=== PATIENT | male | born 1975 | race Caucasian/White ===

== ENCOUNTER 2019-08-06 | Day surgery (SDC) | payer OTHER ==
[~2019-08-06] MED LIST: AMITRIPTYLIN10 MG PO; BACLOFEN10 MG PO; DICLOFENAC SODI75 MG PO; FAMOTIDINE20 M1 PO; INVOKANA300 MG; LIPITOR20 M1 PO; LISINOPRIL10 MG PO; LYRICA50 MG PO; METFORMIN HYD1000 MG PO; METFORMIN850 MG PO; OZEMPIC2 MG/1.51; TRAZODONE100 MG PO
[2019-08-06] MEDS ORDERED: PERCOCET 5/325M1 TAB PO (12:23)
== END 2019-08-06 12:52 | disposition home or self-care (01) ==
DX: K40.90 Unilateral inguinal hernia, without obstruction or gangrene, not specified as recurrent (principal); N43.3 Hydrocele, unspecified; I10 Essential (primary) hypertension; E11.9 Type 2 diabetes mellitus without complications; F17.210 Nicotine dependence, cigarettes, uncomplicated; Z79.84 Long term (current) use of oral hypoglycemic drugs
CPT/HCPCS: C9290; J0131

== ENCOUNTER 2019-11-07 23:23 | Inpatient (IN) | payer OTHER ==
[~2019-11-07] VITALS: Ht 175.3 cm; Wt 95.9 kg
[~2019-11-07 23:23] MED LIST changes: +PERCOCET 5/325M1 TAB PO
--- NOTE | 2019-11-07 23:39 | NUR ---
PT. TO ROOM 9 WITH C/O FEELING SOB ON AND OFF FOR APPROX 2-3 WEEKS. BILATERAL LUNG LINDSEY ARE CDEMINISHED. O2 SAT ON RA 91% PT. STATES HE WAS JUST DIAGNOISED WITH COPD. BP 196/121, AT BEDSIDE.
[2019-11-08] VITALS (18 sets, daily range): BP systolic 130–182; BP diastolic 74–106
--- NOTE | 2019-11-08 00:07 | NUR ---
PO ASA, SL NITRO-GLYCERIN, AND IV LOPRESSOR GIVEN PER MD ORDER.
[2019-11-08 00:23] LABS: HEMATOCRIT 41.4 % (39.0-50.0); HEMOGLOBIN 13.6 g/dl (14.0-18.0); IMMATURE GRANULOCYTES 0.2 % (0.0-5.0); MEAN CELL VOLUME 96.1 fL CALC (80.0-100.0); MEAN CORPUSCULAR HGB 31.6 pG CALC (26.0-32.0); MEAN CORPUSCULAR HGB CONC 32.9 g/dL CAL (32.0-36.0); NEUT# 8.67 thou/uL (1.82-7.42); RED BLOOD COUNT 4.31 mill/uL (4.70-6.10); RED CELL DISTRI WIDTH 13.7 % (11.5-15.5)
[2019-11-08 00:31] LABS: URINE BILIRUBIN - DIPSTICK NEGATIVE (NEGATIVE); URINE BLOOD DIPSTICK MODERATE (NEGATIVE); URINE COLOR YELLOW; URINE GLUCOSE - DIPSTICK >=1000 mg/dL (NEGATIVE); URINE KETONE NEGATIVE (NEGATIVE); URINE LEUK ESTERASE NEGATIVE (NEGATIVE); URINE NITRITE - DIPSTICK NEGATIVE (Negative); URINE PROTEIN - DIPSTICK 30 mg/dL (NEG-TRACE)
[2019-11-08 00:34] LABS: ALBUMIN 4.2 g/dL (3.2-5.0); ALKALINE PHOSPHATASE 79 u/l (38-126); ANION GAP 16 (6-22 (CALC)); BILIRUBIN, TOTAL 0.7 mg/dL (0.0-1.4); BUN 12 mg/dL (9-20); BUN/CREATININE RATIO 15 (12-20 (CALC)); CARBON DIOXIDE 23 mmol/l (22-30); CHLORIDE 104 mmol/l (95-108); CREATININE 0.8 mg/dL (0.7-1.3); ETHYL ALCOHOL 0 mg/dl (0-30); GFR > 60 ML/MIN (>=60 (CALC)); GFR FOR AFR.AMER. > 60 ML/MIN (>=60 (CALC)); LIPASE 20 u/l (23-300); MAGNESIUM 1.4 mg/dL (1.6-2.3); POTASSIUM 4.2 mmol/l (3.5-5.1); SGOT/AST 24 u/l (17-59); SODIUM 139 mmol/l (137-146); TOTAL PROTEIN 7.3 g/dL (6.3-8.2)
[2019-11-08 00:35] LABS: URINE EPITHELIAL CELLS FEW EPI/hpf (0-FEW)
[2019-11-08 00:36] LABS: BARBITURATES NEGATIVE (NEGATIVE); COCAINE NEGATIVE (NEGATIVE); METHADONE NEGATIVE (NEGATIVE); TETRAHYDROCANNABIONOL NEGATIVE (NEGATIVE); TRICYLIC ANTIDEPRESSANTS POSITIVE (NEGATIVE); URINE BACTERIA RARE hpf
[2019-11-08 00:37] LABS: OXCYCODONE NEGATIVE (NEGATIVE)
--- NOTE | 2019-11-08 00:39 | NUR ---
PT. APPEARS LESS SOB AT THIS TIME. VOIDING QS DAVID URINE.
[2019-11-08 00:40] LABS: INTERNATIONAL NORMALIZED RATIO 1.1 RATIO (0.7-1.3)
[2019-11-08 00:45] LABS: MYOGLOBIN 20 ng/mL (0 - 121)
--- NOTE | 2019-11-08 01:39 | NUR ---
PT. GIVEN IV LASIX AND NITRO-OINT. PER MD ORDER.
[2019-11-08] MEDS ORDERED: GLIMEPIRIDE2 MG PO (01:51)
[2019-11-08] MEDS ORDERED: METHOCARBAMOL500 MG PO (01:51)
[2019-11-08] MEDS ORDERED: PROTONIX40 M2 PO (01:52)
[2019-11-08] MEDS ORDERED: SINGULAIR10 MG PO (01:52)
[2019-11-08] MEDS ORDERED: SPIRIVA HANDIHALER IN (01:53)
[2019-11-08] MEDS ORDERED: PROAIR HFA108 MCG/AC IN (01:54)
[2019-11-08] MEDS ORDERED: ALBUTEROL SUL0.083 % IN (01:55)
--- NOTE | 2019-11-08 02:08 | NUR ---
PT. VOIDING APPROX. 500 ML CLEAR DAVID URINE.
--- NOTE | 2019-11-08 02:46 | NUR ---
IN ROOM TO DISCUSS CLINICAL FINDINGS WITH PT. VERBALIZED UNDERSTANDING.
--- NOTE | 2019-11-08 02:58 | NUR ---
IV ABT. STARTED PER MD ORDER.
--- NOTE | 2019-11-08 03:07 | NUR ---
PT. VOIDED APPROX. 2500 ML CLEAR YELLOW URINE FOR THIS ER VISIT.
--- NOTE | 2019-11-08 04:23 | NUR ---
Admission Note Report Given to: ROZ NOE Transported by: Wheelchair X Stretcher Transported with: X Nurse Transporter X Patent IV X O2 X Freight Car Inspector Location: X ICU MS2
--- NOTE | 2019-11-08 04:30 | NUR ---
PT. TAKEN TO ICU VIA STRETCHER, NO C/O AT THIS TIME.
[2019-11-08 07:13] LABS: HEMATOCRIT 38.3 % (39.0-50.0); HEMOGLOBIN 12.6 g/dl (14.0-18.0); IMMATURE GRANULOCYTES 0.4 % (0.0-5.0); MEAN CORPUSCULAR HGB 31.3 pG CALC (26.0-32.0); MEAN CORPUSCULAR HGB CONC 32.9 g/dL CAL (32.0-36.0); NEUT# 7.16 thou/uL (1.82-7.42); RED BLOOD COUNT 4.03 mill/uL (4.70-6.10); RED CELL DISTRI WIDTH 13.7 % (11.5-15.5)
[2019-11-08 07:20] LABS: ALBUMIN 3.7 g/dL (3.2-5.0); ALKALINE PHOSPHATASE 76 u/l (38-126); ANION GAP 16 (6-22 (CALC)); BILIRUBIN, TOTAL 0.8 mg/dL (0.0-1.4); BUN 11 mg/dL (9-20); BUN/CREATININE RATIO 15 (12-20 (CALC)); CALCULATED LDLCHOLESTEROL 23 mg/dL (62-129 (CALC)); CARBON DIOXIDE 23 mmol/l (22-30); CHLORIDE 105 mmol/l (95-108); CHOLESTEROL HDL RATIO 2.9 (<4.4 (CALC)); CREATININE 0.7 mg/dL (0.7-1.3); GFR > 60 ML/MIN (>=60 (CALC)); GFR FOR AFR.AMER. > 60 ML/MIN (>=60 (CALC)); HDL CHOLESTEROL 32 mg/dL (>=40); POTASSIUM 3.8 mmol/l (3.5-5.1); SGOT/AST 19 u/l (17-59); SODIUM 140 mmol/l (137-146); TOTAL CHOLESTEROL 94 mg/dl (0-199); TOTAL PROTEIN 6.6 g/dL (6.3-8.2); TOTAL TRIGLYCERIDES 193 mg/dl (30-149); VLDL CHOLESTROL 39 mg/dl (5-56 (CALC))
--- NOTE | 2019-11-08 08:19 | NUR ---
PT SITTING ON SIDE OF BED, EATING BREAKFAST. DENIES PAIN. DENIES SOB. STATES HE JUST WANTS TO SLEEP.
--- NOTE | 2019-11-08 08:30 | NUR ---
IN ROOM FOR LAB DRAW & AM MEDICAITON.
[2019-11-08 09:16] LABS: C-REACTIVE PROTEIN 2.7 mg/dL (0-0.9)
--- NOTE | 2019-11-08 09:50 | NUR ---
PT INSTRUCTED ON HOW TO PLACE CONDOM CATH ON. CONNECTED TO CATH SANTIAGO BAG. ATTACHED TO RIGHT THIGH BY LEG STRAP
--- NOTE | 2019-11-08 10:30 | NUR ---
PT C/O CONDOM CATH "BLOWING UP LIKE A BALLOON" SO HE TOOK IT OFF & THREW IT IN THE THRASH. PT GIVEN NEW GOWN. LINENS STILL DRY/CLEAN. PT CLEANED SELF UP WITH WET WIPES @BEDSIDE.
--- NOTE | 2019-11-08 10:35 | NUR ---
PTS SENT HIM A [employer] INSURANCE REPRESENTATIVE & EXTENTION CORD. PHONE PLUGGED IN TO IV POLL. EXTENTION CORD PLACED IN BELONGINGS BAG.
--- NOTE | 2019-11-08 10:40 | NUR ---
IN ROOM FOR LAB DRAW.
--- NOTE | 2019-11-08 11:52 | NUR ---
PT SITTING UP IN BED, EATING LUNCH. STATES WILL BRING HIM MORE BOXERS.
--- NOTE | 2019-11-08 13:00 | NUR ---
SENT A BACKPACK WITH NEW BOXER BREIFS PER PT. PT HUGGING BACKPACK IN HIS SLEEP. NO S/S OF DISTRESS. CALLBELL W/IN REACH. WILL CONTINUE TO MONITOR.
--- NOTE | 2019-11-08 14:45 | NUR ---
PT SLEEPING IN BED, REPOSITIONS SELF. CALLBELL ON BED. VSS. WILL CONTINUE TO MONITOR.
--- NOTE | 2019-11-08 15:50 | NUR ---
PT SLEEPING IN BED, REPOSITIONS SELF. CALLBELL ON BED. VSS. WILL CONTINUE TO MONITOR.
--- NOTE | 2019-11-08 17:05 | NUR ---
GIVEN 2 WATER BOTTLES, PER PTS REQUEST. DR CRUZ REVIEWING PTS HOME MED REC.
--- NOTE | 2019-11-08 17:26 | NUR ---
PT SOB AFTER LONG PHONE CONVERSATION WITH FRIEND JOE. PT STATES, "IF YOU KNEW JOE, YOU WOULD BE TOO." DINNER ON BEDSIDE TABLE. PT DENIES PAIN.
--- NOTE | 2019-11-08 18:50 | NUR ---
REPORT FROM Kwame HERNANDEZ RN. ASSUMED PT. CARE.
--- NOTE | 2019-11-08 19:57 | NUR ---
PT. PROVIDED WITH TURKEY SANDWICH AND JUICE PER HIS REQUEST. BLOOD PRESSURE CUFF READJUSTED AND REPLACED. CALL LIGHT WITHIN REACH. RESPS EVEN AND UNLABORED. LUNGS CTA. NO EDEMA NOTED. BOWEL SOUNDS ACTIVE. DISTIL PULSES INTACT. BP SLIGHTLY ELEVATED, BUT PT. STATES HE WAS STANDING AND ATTEMPTING TO URINATE WHILE THE BP WAS TAKING. DENIES OTHER COMPLAINTS OR NEEDS AT THIS TIME. WILL CONTINUE TO CLOSELY MONITOR.
--- NOTE | 2019-11-08 21:45 | NUR ---
SPUTUM SPECIMEN OBTAINED AT THIS TIME AND PATIENT PROVIDED WITH ADDITIONAL PILLOW PER HIS REQUEST. SPUTUM APPEARS RUST COLORED. RESPS REMAIN EVEN AND UNLABORED. MEDICATED PER PHYSICIAN ORDERS. URINAL EMPTIED OF 350 CC DAVID COLORED URINE AT THIS TIME. DENIES OTHER COMPLAINTS OF PAIN OR NEED AT THIS TIME. UPDATED ON PLAN OF CARE.
--- NOTE | 2019-11-08 23:30 | NUR ---
PT. RESTING ON RT. SIDE IN NO DISTRESS. RESPS REMAIN EVEN AND UNLABORED. BP ELEVATED AT THIS TIME. CALL LIGHT REMAINS WITHIN REACH. WILL CONTINUE TO CLOSELY MONITOR.
[2019-11-09] VITALS (11 sets, daily range): BP systolic 120–169; BP diastolic 80–109
--- NOTE | 2019-11-09 01:15 | NUR ---
PT. CONTINUES TO REST WITH EYES CLOSED IN NO DISTRESS. HR REMAINS SINUS TACH IN THE 100'S. CALL LIGHT REMAINS WITHIN REACH. BP IS SIGNIFICANTLY IMPROVED AT 120/80. WILL CONTINUE TO MONITOR.
--- NOTE | 2019-11-09 03:05 | NUR ---
PT. REMAINS WITHOUT COMPLAINT OR NEED AT THIS TIME. RESPS REMAIN EVEN AND UNLABORED. BP/HR REMAIN STABLE. CALL LIGHT REMAINS WITHIN REACH.
--- NOTE | 2019-11-09 04:30 | NUR ---
LABS OBTAINED AT THIS TIME. PT. DENIES COMPLAINTS OR NEEDS. RESPS REMAIN EVEN AND UNLABORED. SKIN WARM AND DRY. AFEBRILE, BUT SLIGHT ELEVATION OF TEMP AT 99.8. CALL LIGHT REMAINS WITHIN REACH.
[2019-11-09 05:13] LABS: HEMATOCRIT 40.8 % (39.0-50.0); HEMOGLOBIN 13.5 g/dl (14.0-18.0); IMMATURE GRANULOCYTES 0.2 % (0.0-5.0); MEAN CELL VOLUME 93.6 fL CALC (80.0-100.0); MEAN CORPUSCULAR HGB CONC 33.1 g/dL CAL (32.0-36.0); NEUT# 5.38 thou/uL (1.82-7.42); RED BLOOD COUNT 4.36 mill/uL (4.70-6.10); RED CELL DISTRI WIDTH 13.4 % (11.5-15.5)
[2019-11-09 05:47] LABS: ANION GAP 14 (6-22 (CALC)); BUN 12 mg/dL (9-20); BUN/CREATININE RATIO 16 (12-20 (CALC)); CALCULATED LDLCHOLESTEROL 47 mg/dL (62-129 (CALC)); CARBON DIOXIDE 27 mmol/l (22-30); CHLORIDE 100 mmol/l (95-108); CHOLESTEROL HDL RATIO 3.1 (<4.4 (CALC)); CREATININE 0.7 mg/dL (0.7-1.3); GFR > 60 ML/MIN (>=60 (CALC)); GFR FOR AFR.AMER. > 60 ML/MIN (>=60 (CALC)); HDL CHOLESTEROL 34 mg/dL (>=40); LIPASE 26 u/l (23-300); MAGNESIUM 1.3 mg/dL (1.6-2.3); POTASSIUM 3.5 mmol/l (3.5-5.1); SODIUM 137 mmol/l (137-146); TOTAL CHOLESTEROL 106 mg/dl (0-199); TOTAL TRIGLYCERIDES 123 mg/dl (30-149); VLDL CHOLESTROL 25 mg/dl (5-56 (CALC))
[2019-11-09 05:52] LABS: AMYLASE < 30 u/l (30-110)
--- NOTE | 2019-11-09 06:21 | NUR ---
PT. RESTING ON LT. SIDE IN NO DISTRESS. BP SLIGHTLY ELEVATED. HR REMAINS SINUS TACH IN THE LOW 100'S. CALL LIGHT REMAINS WITHIN REACH. SPO2 IN THE 80'S AT THIS TIME WHILE AT REST. WILL CONTINUE TO MONITOR.
--- NOTE | 2019-11-09 07:50 | NUR ---
PT RESTING IN BED. NO DISTRESS NOTED. PT DENIES CHEST PAIN AT THIS TIME. NO SOB NOTED. MG REPLACED. WILL CONTINUE TO MONITOR.
--- NOTE | 2019-11-09 10:00 | NUR ---
DR. CHRISTINA AT BEDSIDE TO ASSESS PT. PT RESTING IN BED. NO DISTRESS NOTED. DENIES CHEST PAIN AT THIS TIME. NEW IV STARTED. WILL CONTINUE TO MONITOR.
--- NOTE | 2019-11-09 11:40 | NUR ---
REPORT GIVEN TO NURSE GALE
--- NOTE | 2019-11-09 12:07 | NUR ---
PT TRANSFERRED TO [facility], PT IN STABLE CONDITION. NO DISTRESS NOTED. PT TRANSFERRED IN WHEELCHAIR. PT AMBULATED TO BED FROM WHEELCHAIR WITHOUT ASSISTANCE. PT SENT WITH BELONGINGS, MEDICAL CHART AND MEDICATIONS. BEDSIDE REPORT GIVEN TO SHAHLA.
--- NOTE | 2019-11-09 12:15 | NUR ---
PT TRANSPORTED VIA WHEELCHAIR BY DIMITRIS HUYNH RN TO ROOM 281. PT IS ALERT AND ORIENTED X 3. PT IS AMBULATARY AND ABLE TO MAKE HIS NEEDS KNOWN. PT DENIES PAIN OR DISCOMFORT. PT ORIENTED TO ROOM, CALL LIGHT, TV REMOTE. LEADER WRITER WILL CONTINUE TO MONITOR.
--- NOTE | 2019-11-09 15:52 | NUR ---
PT RESTING COMFORTABLY IN ROOM. NO S/S OF DISTRESS. TOBACCO WRAPPING MACHINE TENDER WILL CONTINUE TO MONITOR.
--- NOTE | 2019-11-09 19:00 | NUR ---
RECEIVED REPORT FROM NURSE GALE PATIENT WATCHING TV, NO DISCOMFORTS NOTED AT THIS TIME, EVEN UNLABORED BREATHING CALL LIGHT AT [facility].
--- NOTE | 2019-11-09 21:00 | NUR ---
PATIENT ALERT ORIENTED AMBULATORY WITH SALINE LOCK ON LAC PATENT FLUSHES WELL, REMAINS ON [address], LBM 5/3, LUNG SOUNDS CLEAR, CALL LIGHT AT REACH.
--- NOTE | 2019-11-10 01:00 | NUR ---
PATIENT APPEARS TO BE SLEEPING WITH EYES CLOSED ITH EVEN UNLABORED BREATHING CALL LIGHT AT REACH.
[2019-11-10 03:48] VITALS: BP 129/72
--- NOTE | 2019-11-10 05:11 | NUR ---
PATIENT RESTING IN BED WITH EYES CLOSED WITH EVEN UNLABORED BREATHING CALL LIGHT AT REACH.
--- NOTE | 2019-11-10 07:25 | NUR ---
change of shift report received from chris garcia. pt is room getting echo done. commercial loan underwriter will continue to monitor
[2019-11-10 08:41] VITALS: BP 148/94
--- NOTE | 2019-11-10 09:00 | NUR ---
medications administered late because pt was getting his ECHO done. meds administered at this time. pt able to make his needs known. call light within easy reach.
--- NOTE | 2019-11-10 10:30 | NUR ---
pt transferred to room 267. covid-19 swab negative.
[2019-11-10] MEDS ORDERED: OMNICEF300 MG PO (10:44)
[2019-11-10] MEDS ORDERED: ZITHROMAX250 MG PO (10:44)
--- NOTE | 2019-11-10 11:30 | NUR ---
CALLED AND SPOKE TO AURY REGARDING THIS PT FOR CONSULTATION OF DR. URRUTIA FOR NEW ONSET CHF. STATED SHE WILL LET THEM KNOW.
[2019-11-10] MEDS ORDERED: ASPIRIN ADULT L81 M2 PO (11:37)
[2019-11-10] MEDS ORDERED: LIPITOR20 M1 PO (11:38)
[2019-11-10 12:01] VITALS: BP 118/79
[2019-11-10] MEDS ORDERED: COREG6.25 MG PO (13:34)
[2019-11-10] MEDS ORDERED: LASIX40 MG PO (13:34)
--- NOTE | 2019-11-10 14:50 | NUR ---
Discharge instructions given. Patient verbalizes understanding of same. Discharged in good condition via Ambulatory to Home with spouse. All belongings sent with pt.
[2019-11-10 15:17] VITALS: BP 117/67
== END 2019-11-10 14:48 | disposition home or self-care (01) | DRG 291 ==
LOC: ED 23:23 → ED-I 11-08 01:15 → ED 11-08 03:14 → ICU 11-08 03:15 → MS2 11-09 12:08
PROVIDERS: ADMIT Internal Medicine; ATTEND Internal Medicine
DX: I11.0 Hypertensive heart disease with heart failure (principal); I50.21 Acute systolic (congestive) heart failure; J18.9 Pneumonia, unspecified organism; J96.01 Acute respiratory failure with hypoxia; J44.0 Chronic obstructive pulmonary disease with (acute) lower respiratory infection; I24.8 Other forms of acute ischemic heart disease; E11.40 Type 2 diabetes mellitus with diabetic neuropathy, unspecified; E83.42 Hypomagnesemia; F17.210 Nicotine dependence, cigarettes, uncomplicated; Z79.84 Long term (current) use of oral hypoglycemic drugs; Z20.828 Contact with and (suspected) exposure to other viral communicable diseases
CPT/HCPCS: J3475; Q9967

== ENCOUNTER 2021-03-11 12:15 | Emergency (ER) | payer OTHER ==
[~2021-03-11] VITALS: Ht 175.3 cm; Wt 99.0 kg
[~2021-03-11 12:15] MED LIST changes: +ALBUTEROL SUL0.083 % IN; +ASPIRIN ADULT L81 M2 PO; +COREG6.25 MG PO; +GLIMEPIRIDE2 MG PO; +LASIX40 MG PO; +METHOCARBAMOL500 MG PO; +OMNICEF300 MG PO; +PROAIR HFA108 MCG/AC IN; +PROTONIX40 M2 PO; +SINGULAIR10 MG PO; +SPIRIVA HANDIHALER IN; +ZITHROMAX250 MG PO
[2021-03-11 13:46] LABS: HEMATOCRIT 35.7 % (39.0-50.0); HEMOGLOBIN 11.8 g/dl (14.0-18.0); IMMATURE GRANULOCYTES 0.7 % (0.0-5.0); MEAN CELL VOLUME 94.2 fL CALC (80.0-100.0); MEAN CORPUSCULAR HGB 31.1 pG CALC (26.0-32.0); MEAN CORPUSCULAR HGB CONC 33.1 g/dL CAL (32.0-36.0); NEUT# 14.47 thou/uL (1.82-7.42); RED BLOOD COUNT 3.79 mill/uL (4.70-6.10); RED CELL DISTRI WIDTH 12.5 % (11.5-15.5)
[2021-03-11 14:02] LABS: ACT PARTIAL THROMBO TIME 28.1 SECONDS (20.0-32.5); ALBUMIN 3.9 g/dL (3.2-5.0); ALKALINE PHOSPHATASE 66 u/l (38-126); AMYLASE 56 u/l (30-110); BUN 61 mg/dL (9-20); CHLORIDE 101 mmol/l (95-108); ETHYL ALCOHOL 0 mg/dl (0-30); LIPASE 107 u/l (23-300); MAGNESIUM 1.2 mg/dL (1.6-2.3); POTASSIUM 3.4 mmol/l (3.5-5.1); PROTHROMBIN TIME 10.2 SECONDS (9.0-12.5); SGOT/AST 16 u/l (17-59); SODIUM 138 mmol/l (137-146); TOTAL PROTEIN 6.6 g/dL (6.3-8.2)
[2021-03-11 14:08] LABS: ANION GAP 24 (6-22 (CALC)); BILIRUBIN, TOTAL 0.2 mg/dL (0.0-1.4); BUN/CREATININE RATIO 5 (12-20 (CALC)); CARBON DIOXIDE 16 mmol/l (22-30); CREATININE 11.9 mg/dL (0.7-1.3); GFR 5 ML/MIN (>=60 (CALC)); GFR FOR AFR.AMER. 6 ML/MIN (>=60 (CALC))
[2021-03-11 16:33] VITALS: BP 136/64
== END 2021-03-11 15:30 | disposition short-term general hospital (02) ==
LOC: ED 12:15
DX: A41.9 Sepsis, unspecified organism (principal); R65.20 Severe sepsis without septic shock; N17.9 Acute kidney failure, unspecified; R07.9 Chest pain, unspecified; E86.0 Dehydration; I10 Essential (primary) hypertension; E11.40 Type 2 diabetes mellitus with diabetic neuropathy, unspecified; J44.9 Chronic obstructive pulmonary disease, unspecified; I25.2 Old myocardial infarction; Z79.84 Long term (current) use of oral hypoglycemic drugs; Z95.5 Presence of coronary angioplasty implant and graft; Z20.822 Contact with and (suspected) exposure to COVID-19
CPT/HCPCS: J3475

== ENCOUNTER 2021-03-19 21:24 | Emergency (ER) | payer OTHER ==
[~2021-03-19] VITALS: Ht 175.3 cm; Wt 99.0 kg
[2021-03-19] MEDS ORDERED: LEVOTHYROXIN100 MCG PO (22:07)
[2021-03-19] MEDS ORDERED: SUCRALFATE1 GM PO (22:08)
[2021-03-19] MEDS ORDERED: BUSPIRONE5 MG PO (22:09)
[2021-03-19] MEDS ORDERED: PLAVIX75 MG PO (22:09)
[2021-03-19 23:01] LABS: HEMATOCRIT 32.3 % (39.0-50.0); HEMOGLOBIN 10.4 g/dl (14.0-18.0); IMMATURE GRANULOCYTES 0.4 % (0.0-5.0); MEAN CELL VOLUME 97.3 fL CALC (80.0-100.0); MEAN CORPUSCULAR HGB 31.3 pG CALC (26.0-32.0); MEAN CORPUSCULAR HGB CONC 32.2 g/dL CAL (32.0-36.0); NEUT# 7.43 thou/uL (1.82-7.42); RED BLOOD COUNT 3.32 mill/uL (4.70-6.10); RED CELL DISTRI WIDTH 13.1 % (11.5-15.5)
[2021-03-19 23:07] LABS: ALBUMIN 3.8 g/dL (3.2-5.0); POTASSIUM 3.6 mmol/l (3.5-5.1); TOTAL PROTEIN 6.6 g/dL (6.3-8.2)
[2021-03-19 23:08] LABS: BILIRUBIN, TOTAL 0.4 mg/dL (0.0-1.4); CREATININE 2.4 mg/dL (0.7-1.3)
[2021-03-19 23:36] LABS: URINE BILIRUBIN - DIPSTICK NEGATIVE (NEGATIVE); URINE BLOOD DIPSTICK SMALL (NEGATIVE); URINE COLOR YELLOW; URINE GLUCOSE - DIPSTICK 500 mg/dL (NEGATIVE); URINE KETONE NEGATIVE (NEGATIVE); URINE LEUK ESTERASE NEGATIVE (NEGATIVE); URINE PROTEIN - DIPSTICK NEGATIVE (NEG-TRACE); URINE SPECIFIC GRAVITY 1.015; URINE UROBILINOGEN - DIPSTICK 0.2 E.U./dL (0.2)
[2021-03-19 23:37] LABS: URINE NITRITE - DIPSTICK NEGATIVE (Negative)
[2021-03-19 23:45] LABS: URINE SQUAMOUS EPITHELIAL CELL FEW EPI/hpf (0-FEW); URINE WBC 0-2 WBC/hpf (0-5)
[2021-03-20 00:28] VITALS: BP 164/97
== END 2021-03-20 00:33 | disposition home or self-care (01) ==
LOC: ED 21:24
PROVIDERS: Family Medicine
DX: I11.0 Hypertensive heart disease with heart failure (principal); I50.9 Heart failure, unspecified; N17.9 Acute kidney failure, unspecified; E11.40 Type 2 diabetes mellitus with diabetic neuropathy, unspecified; J44.9 Chronic obstructive pulmonary disease, unspecified; I25.2 Old myocardial infarction; Z79.84 Long term (current) use of oral hypoglycemic drugs

== ENCOUNTER 2021-06-27 14:42 | Observation (INO) | payer OTHER ==
[~2021-06-27] VITALS: Ht 175.3 cm; Wt 96.0 kg
[~2021-06-27 14:42] MED LIST changes: +BUSPIRONE5 MG PO; +LEVOTHYROXIN100 MCG PO; +PLAVIX75 MG PO; +SUCRALFATE1 GM PO
--- NOTE | 2021-06-27 14:55 | NUR ---
PATIENT ESCORTED TO ROOM IN WHEELCHAIR. ALERT AND ORIENTED. NO ACUTE DISTRESS. CONNECTED TO MONITOR AND EKG COMPLETED. MD NOTIFIED OF PATIENT STATUS.
[2021-06-27 15:43] LABS: HEMATOCRIT 39.7 % (39.0-50.0); HEMOGLOBIN 13.4 g/dl (14.0-18.0); IMMATURE GRANULOCYTES 0.2 % (0.0-5.0); MEAN CELL VOLUME 94.3 fL CALC (80.0-100.0); MEAN CORPUSCULAR HGB 31.8 pG CALC (26.0-32.0); MEAN CORPUSCULAR HGB CONC 33.8 g/dL CAL (32.0-36.0); NEUT# 9.28 thou/uL (1.82-7.42); RED BLOOD COUNT 4.21 mill/uL (4.70-6.10)
--- NOTE | 2021-06-27 15:55 | NUR ---
Reassessment of patient completed. No distress noted.
[2021-06-27 15:56] LABS: ALBUMIN 4.4 g/dL (3.2-5.0); ALKALINE PHOSPHATASE 87 u/l (38-126); BILIRUBIN, TOTAL 0.5 mg/dL (0.0-1.4); BUN 48 mg/dL (9-20); BUN/CREATININE RATIO 22 (12-20 (CALC)); CARBON DIOXIDE 25 mmol/l (22-30); CHLORIDE 103 mmol/l (95-108); CREATININE 2.1 mg/dL (0.7-1.3); GFR 34 ML/MIN (>=60 (CALC)); GFR FOR AFR.AMER. 41 ML/MIN (>=60 (CALC)); SGOT/AST 22 u/l (17-59); SODIUM 140 mmol/l (137-146)
[2021-06-27 16:05] LABS: ANION GAP 16 (6-22 (CALC)); POTASSIUM 4.2 mmol/l (3.5-5.1)
--- NOTE | 2021-06-27 16:55 | NUR ---
Reassessment of patient completed. No distress noted.
--- NOTE | 2021-06-27 17:48 | NUR ---
DELIVERED MEAL TRAY TO PATIENT AND HE IS EATING. NO ACUTE DISTRESS.
--- NOTE | 2021-06-27 18:38 | NUR ---
Reassessment of patient completed. No distress noted.
--- NOTE | 2021-06-27 19:09 | NUR ---
REPORT RECIEVED FROM NOAM NOE. PER REPORT PT HAS A 20 G RAC.
--- NOTE | 2021-06-27 19:29 | NUR ---
CALL PLACED TO ER KIRILL PT LAST VS. PER @1920 BP WAS 124/63, HR 85, AND O2 97%
--- NOTE | 2021-06-27 19:48 | NUR ---
tele box [phone] in use
--- NOTE | 2021-06-27 19:49 | NUR ---
pt agrees with plan for admission. no distress noted. VSS.
--- NOTE | 2021-06-27 19:51 | NUR ---
Admission Note Report Given to: Transported by: x Wheelchair Stretcher Transported with: x Nurse Transporter x Patent IV O2 x Employment And Claims Aide Location: ICU x MS2 report called by off-going nurse
--- NOTE | 2021-06-27 19:59 | NUR ---
pt transported to floor with belongings
--- NOTE | 2021-06-27 20:06 | NUR ---
PT ARRIVED TO FLOOR VIA WHEEL CHAIR ACCOMPANIED BY CHERISE NOE
--- NOTE | 2021-06-27 20:06 | NUR ---
PT ALERT AND ORIENTED X3. ASSEMENT AND VITALS COMPLETED AT THIS TIME. RAC #20 SALINE LOCKED. NORMAL HEART SOUNDS, AND LUNG SOUNDS. COMPLAINS OF NO CURRENT PAIN. CALL LIGHT AND BEDSIDE TABLE GENE GRECO
[2021-06-27 20:10] VITALS: BP 114/90
[2021-06-27] MEDS ORDERED: LYRICA150 M1 PO (21:04)
[2021-06-28] VITALS: BP 105/66
[2021-06-28 04:00] VITALS: BP 99/55
[2021-06-28 05:26] LABS: HEMOGLOBIN 12.5 g/dl (14.0-18.0); MEAN CELL VOLUME 95.5 fL CALC (80.0-100.0); MEAN CORPUSCULAR HGB 31.4 pG CALC (26.0-32.0); MEAN CORPUSCULAR HGB CONC 32.9 g/dL CAL (32.0-36.0); RED BLOOD COUNT 3.98 mill/uL (4.70-6.10); RED CELL DISTRI WIDTH 13.1 % (11.5-15.5)
[2021-06-28 05:45] LABS: CHOLESTEROL HDL RATIO 4.4 (<4.4 (CALC)); POTASSIUM 3.7 mmol/l (3.5-5.1)
[2021-06-28 05:50] LABS: MAGNESIUM 2.3 mg/dL (1.6-2.3)
--- NOTE | 2021-06-28 08:00 | NUR ---
PT ALLOWED ASSESSMENT AT THIS TIME. LUNG SOUNDS ARE CLEAR UPPER/ LOWER LOBES. HEART SOUNDS ARE REGULAR. BOWEL SOUNDS HEARD X4, TELE MONITOR IN PLACE. MONITORED BY ED. IV LOCTED ON THE 20 RFA, SALINE LOCK. FLUSHED WITH NO RESISTANCE. FALL PRECUATIONS ARE IN PLACE. CALL LIGHT WITHIN REACH.
--- NOTE | 2021-06-28 10:10 | NUR ---
DR. ALMAGUER AND ANALIA VELEZ AT BEDSIDE WITH PT.
[2021-06-28 10:29] VITALS: BP 147/92
--- NOTE | 2021-06-28 12:00 | NUR ---
PT EATING LUNCH AT THIS TIME. REPORTS NO PAIN. CALL LIGHT WITHIN REACH. TELE MONITOR IN PLACE. FALL PRECAUTIONS ARE IN PLACE.
[2021-06-28] MEDS ORDERED: CARAFATE1 GM PO (13:17)
--- NOTE | 2021-06-28 14:33 | NUR ---
Discharge instructions given. Patient verbalizes understanding of same. Discharged in stable condition via Wheelchair to Home with staff. All belongings sent with pt.
== END 2021-06-28 14:43 | disposition home or self-care (01) ==
LOC: ED 14:42 → ED-I 16:37 → ED 16:48 → MS2 16:49
PROVIDERS: Family Medicine; ADMIT Hospitalist; ATTEND Hospitalist
DX: R07.9 Chest pain, unspecified (principal); I13.0 Hypertensive heart and chronic kidney disease with heart failure and stage 1 through stage 4 chronic kidney disease, or unspecified chronic kidney disease; E11.22 Type 2 diabetes mellitus with diabetic chronic kidney disease; N18.9 Chronic kidney disease, unspecified; I50.9 Heart failure, unspecified; E11.40 Type 2 diabetes mellitus with diabetic neuropathy, unspecified; J44.9 Chronic obstructive pulmonary disease, unspecified; E03.9 Hypothyroidism, unspecified; K21.9 Gastro-esophageal reflux disease without esophagitis; E78.5 Hyperlipidemia, unspecified; I25.2 Old myocardial infarction; Z87.891 Personal history of nicotine dependence; Z79.84 Long term (current) use of oral hypoglycemic drugs; Z95.5 Presence of coronary angioplasty implant and graft; Z79.02 Long term (current) use of antithrombotics/antiplatelets; Z20.822 Contact with and (suspected) exposure to COVID-19
CPT/HCPCS: G0378

== ENCOUNTER 2023-02-19 06:58 | Day surgery (SDC) | payer OTHER ==
[~2023-02-19] VITALS: Ht 175.3 cm; Wt 88.9 kg
[~2023-02-19 06:58] MED LIST changes: +ALLERGY RE50 MCG/ACT; +ARNUITY EL50 MCG/ACT; +ASPIRIN 81 LOW81 MG PO; +ATORVASTATIN CA80 MG PO; +BUMETANIDE1 MG PO; +CARAFATE1 GM PO; +CARVEDILOL25 MG PO; +DULOXETINE HCL30 MG PO; +FARXIGA10 MG PO; +LYRICA150 M1 PO; +NITROSTAT0.4 MG SL; +OZEMPIC2 MG; +STOOL SOFTENER100 M1 PO; +TAMAZAPAM PO; +TYLENOL500 MG PO
[2023-02-19] MEDS ORDERED: TEMAZEPAM30 MG PO (07:23)
[2023-02-19 10:10] VITALS: BP 113/70
== END 2023-02-19 10:23 | disposition home or self-care (01) ==
LOC: ORM 06:58
PROVIDERS: ATTEND Surgery
DX: K57.31 Diverticulosis of large intestine without perforation or abscess with bleeding (principal); K62.1 Rectal polyp; K64.8 Other hemorrhoids; E11.9 Type 2 diabetes mellitus without complications; F17.200 Nicotine dependence, unspecified, uncomplicated; Z95.5 Presence of coronary angioplasty implant and graft; Z79.84 Long term (current) use of oral hypoglycemic drugs

== ENCOUNTER 2023-03-15 08:36 | Emergency (ER) | payer MEDICAID ==
[~2023-03-15] VITALS: Ht 175.3 cm; Wt 91.0 kg
[~2023-03-15 08:36] MED LIST changes: +TEMAZEPAM30 MG PO
[2023-03-15 08:47] VITALS: BP 115/77
[2023-03-15] MEDS ORDERED: MECLIZINE25 M1 PO (09:08)
== END 2023-03-15 09:35 | disposition home or self-care (01) ==
LOC: ED 08:36
DX: H81.12 Benign paroxysmal vertigo, left ear (principal); I11.0 Hypertensive heart disease with heart failure; I50.9 Heart failure, unspecified; J44.9 Chronic obstructive pulmonary disease, unspecified; E11.40 Type 2 diabetes mellitus with diabetic neuropathy, unspecified; I25.2 Old myocardial infarction; F17.210 Nicotine dependence, cigarettes, uncomplicated; Z95.5 Presence of coronary angioplasty implant and graft; Z79.84 Long term (current) use of oral hypoglycemic drugs